=== PATIENT | male | born 1970 | race Two or more races ===

== ENCOUNTER 2020-01-05 08:36 | Day surgery (SDC) | payer OTHER | END 2020-01-05 21:10 | disposition home or self-care (01) | LOC: CIR.AMB 08:36 | PROVIDERS: ATTEND Colon & Rectal Surgery | DX: K64.4 Residual hemorrhoidal skin tags (principal); K64.8 Other hemorrhoids; Z20.828 Contact with and (suspected) exposure to other viral communicable diseases ==